=== PATIENT | female | born 1965 | race Caucasian/White ===

== ENCOUNTER → 2025-04-06 07:30 | Outpatient (REF) | payer OTHER, SELFPAY ==
[2025-04-06 09:20] LABS: Hematocrit 47.9 % (37.0-47.0); Hemoglobin 15.8 g/dL (12.0-16.0); Mean Corp Hgb Conc. 33.0 g/dL (33.0-37.0); Mean Corpuscular Volume 93.0 fL (81.0-99.0); Nucleated Red Blood Cells % 0 %; Platelet Count 281 10^3/uL (130-400); Red Cell Dist. Width 12.2 % (11.5-14.5)
[2025-04-06 10:29] LABS: ALT (SGPT) 16 U/L (0-35); AST (SGOT) 23 U/L (14-36); Albumin 5.2 g/dl (3.5-5.0); Alkaline Phosphatase 58 U/L (38-126); Blood Urea Nitrogen 11 mg/dl (7-17); Calcium 10.3 mg/dl (8.4-10.2); Carbon Dioxide 29 mmol/L (22-30); Chloride 100 mmol/L (98-107); Glucose 146 mg/dl (70-99); Iron 144 ug/dl (37-170); Magnesium 2.3 mg/dl (1.6-2.3); Potassium 4.6 mmol/L (3.5-5.1); Sodium 136 mmol/L (135-145); Total Protein 8.4 g/dl (6.3-8.2); eGFR > 60.00
[2025-04-06 10:39] LABS: Total Iron Binding Capacity 333 ug/dl (265-497)
[2025-04-06 12:14] LABS: Vitamin D, 25-OH*** 42.7 ng/mL (30-80)
[2025-04-06 12:32] LABS: Ferritin 59.4 ng/ml (11.1-264.0)
[2025-04-06 12:47] LABS: Vitamin B12 677 pg/ml (239-931)
== END ==
LOC: RAD 07:30
PROVIDERS: ATTENDING PHYSICIAN Family Medicine
DX: R10.30 Lower abdominal pain, unspecified (principal); R53.83 Other fatigue; R79.9 Abnormal finding of blood chemistry, unspecified; Z01.89 Encounter for other specified special examinations; Z79.899 Other long term (current) drug therapy; Z13.1 Encounter for screening for diabetes mellitus
CPT/HCPCS: 36415; 74177; 80053; 82306; 82607; 82728; 83540; 83550; 83735; 83921; 84439; 84443; 85025; Q9967